=== PATIENT | female | born 1940 | race Caucasian/White ===

== ENCOUNTER 2018-10-16 14:01 | Inpatient (IN) ==
[2018-10-16] MEDS ORDERED: ONDANSETRON 4 MG/2 ML VIAL IV STA (14:52)
[2018-10-16] MEDS ORDERED: SODIUM CHLORIDE 0.9% 1,000 ML IV STA (14:52)
[2018-10-16] MEDS ORDERED: LORazepam 2 MG/1 ML VIAL IV STA (14:53)
[2018-10-16 15:47] LABS: Basophils % 0.2 % (0.0-0.8); Eosinophils % 0.5 % (0.00-10.9); Hematocrit 26.2 VOL% (35.7-47.0); Hemoglobin 8.6 GM/DL (12.0-16.0); Immature Granulocytes % 0.5 %; Immature Granulocytes Absolute 0.04 #; Lymphocytes # 0.9 10*3/uL (1.4-4.0); Lymphocytes % 11.1 % (21.3-54.2); Mean Corpuscular HGB Conc 32.8 GM/DL (32-36); Mean Corpuscular Volume 89.7 FL (87-102); Mean Platelet Volume 9.7 FL (9.6-12.0); Neutrophils % 77.7 % (38.7-73.9); Platelet Count 192 T/CUMM (130-400); Red Blood Count 2.92 MC/CUMM (3.8-5.5); Red Cell Distribution Width 15.5 % (9.3-17.3); White Blood Count 8.1 T/CUMM (4-12)
[2018-10-16 16:17] LABS: Albumin 3.5 G/DL (3.4-5.0); Bilirubin,Total 0.8 MG/DL (0.2-1.0); Calcium 8.5 MG/DL (8.5-10.1); Osmolality,Calculated 279.7 MOS/KG (273-304); Total Protein 7.2 G/DL (6.4-8.3)
[2018-10-16] MEDS ORDERED: ONDANSETRON 4 MG/2 ML VIAL IV PRN (17:30)
[2018-10-16 19:28] LABS: Apearance,Urine Slightly Hazy (Clear); Bilirubin,Urine Negative (Negative); Blood, Urine Negative (Negative); Glucose,Urine (UA) Negative (Negative); Hyaline Casts,Urine 26 /LPF (0-3); Ketones,Urine Negative (Negative); Mucus,Urine Occasional /LPF (Occasional); Nitrite,Urine Negative (Negative); Protein,Urine 30 MG/DL; RBC,Urine 1 /HPF (0-4); Squamous Epithelial Cell,Urine Occasional /HPF (0-10); Urine Color Amber (Yellow); Urine Specific Gravity 1.016 (1.001-1.035); WBC,Urine 4 /HPF (0-6)
[2018-10-16] MEDS: DEXT 5% NACL 0.45% KCL 20 MEQ 20 MEQ/1,000 ML BAG IV SCH (20:27)
[2018-10-17] MEDS: MORPHINE 4 MG/1 ML VIAL IV PRN ×3 (02:53→12:20)
[2018-10-17 05:35] LABS: Basophils # 0.1 10*3/uL (0.0-0.2); Basophils % 0.6 % (0.0-0.8); Eosinophils # 0.1 10*3/uL (0.0-0.87); Eosinophils % 1.1 % (0.00-10.9); Hematocrit 25.3 VOL% (35.7-47.0); Hemoglobin 8.6 GM/DL (12.0-16.0); Immature Granulocytes % 0.5 %; Immature Granulocytes Absolute 0.04 #; Lymphocytes % 12.3 % (21.3-54.2); Mean Corpuscular Volume 88.8 FL (87-102); Mean Platelet Volume 10.2 FL (9.6-12.0); Monocytes % 10.5 % (1.7-12.7); Platelet Count 170 T/CUMM (130-400); Red Blood Count 2.85 MC/CUMM (3.8-5.5); Red Cell Distribution Width 15.5 % (9.3-17.3); White Blood Count 7.9 T/CUMM (4-12)
[2018-10-17] MEDS: DEXT 5% NACL 0.45% KCL 20 MEQ 20 MEQ/1,000 ML BAG IV SCH ×4 (05:47→23:18)
[2018-10-17 06:04] LABS: Bilirubin,Total 0.8 MG/DL (0.2-1.0); Osmolality,Calculated 283.4 MOS/KG (273-304); Risk Ratio 2.72; Thyroid Stimulating Hormone 5.67 uIU/ml (0.358-3.74); Total Protein 6.5 G/DL (6.4-8.3); VLDL CHOLESTEROL 23.4 MG/DL
[2018-10-17] MEDS: PANTOPRAZOLE 40 MG VIAL IV SCH (10:05)
[2018-10-17] MEDS: ACETAMINOPHEN 325 MG TABLET PO PRN (10:13)
[2018-10-17] MEDS: POLYETHYLENE GLYCOL POWDER 17 GM PACK PO SCH (12:26)
[2018-10-18] MEDS: DEXT 5% NACL 0.45% KCL 20 MEQ 20 MEQ/1,000 ML BAG IV SCH ×2 (03:33→09:53)
[2018-10-18 05:20] LABS: Basophils % 0.4 % (0.0-0.8); Eosinophils # 0.1 10*3/uL (0.0-0.87); Eosinophils % 1.9 % (0.00-10.9); Hematocrit 22.4 VOL% (35.7-47.0); Hemoglobin 7.5 GM/DL (12.0-16.0); Immature Granulocytes Absolute 0.07 #; Lymphocytes # 1.4 10*3/uL (1.4-4.0); Lymphocytes % 20.6 % (21.3-54.2); Mean Corpuscular HGB Conc 33.5 GM/DL (32-36); Mean Corpuscular Volume 92.2 FL (87-102); Mean Platelet Volume 9.9 FL (9.6-12.0); Monocytes % 10.9 % (1.7-12.7); Neutrophils % 65.2 % (38.7-73.9); Platelet Count 147 T/CUMM (130-400); Red Blood Count 2.43 MC/CUMM (3.8-5.5); Red Cell Distribution Width 15.9 % (9.3-17.3); White Blood Count 6.8 T/CUMM (4-12)
[2018-10-18 05:42] LABS: Albumin 2.5 G/DL (3.4-5.0); Bilirubin,Total 0.7 MG/DL (0.2-1.0); Calcium 7.3 MG/DL (8.5-10.1); Osmolality,Calculated 284.3 MOS/KG (273-304); Total Protein 5.9 G/DL (6.4-8.3)
[2018-10-18] MEDS: ACETAMINOPHEN 325 MG TABLET PO PRN (09:54)
[2018-10-18] MEDS: PANTOPRAZOLE 40 MG VIAL IV SCH (09:59)
[2018-10-18] MEDS: POLYETHYLENE GLYCOL POWDER 17 GM PACK PO SCH (10:05)
[2018-10-18] MEDS: MORPHINE 4 MG/1 ML VIAL IV PRN (14:24)
[2018-10-19] MEDS: DEXT 5% NACL 0.45% KCL 20 MEQ 20 MEQ/1,000 ML BAG IV SCH ×3 (02:20→13:45)
[2018-10-19 06:13] LABS: Basophils % 0.7 % (0.0-0.8); Eosinophils # 0.2 10*3/uL (0.0-0.87); Hematocrit 23.1 VOL% (35.7-47.0); Hemoglobin 7.2 GM/DL (12.0-16.0); Immature Granulocytes % 0.5 %; Immature Granulocytes Absolute 0.03 #; Lymphocytes # 1.2 10*3/uL (1.4-4.0); Lymphocytes % 20.6 % (21.3-54.2); Mean Corpuscular HGB Conc 31.2 GM/DL (32-36); Mean Corpuscular Volume 93.5 FL (87-102); Mean Platelet Volume 10.4 FL (9.6-12.0); Neutrophils % 65.2 % (38.7-73.9); Platelet Count 147 T/CUMM (130-400); Red Blood Count 2.47 MC/CUMM (3.8-5.5); Red Cell Distribution Width 15.5 % (9.3-17.3); White Blood Count 5.7 T/CUMM (4-12)
[2018-10-19 06:50] LABS: Albumin 2.3 G/DL (3.4-5.0); Bilirubin,Total 0.4 MG/DL (0.2-1.0); Calcium 7.6 MG/DL (8.5-10.1); Osmolality,Calculated 278.8 MOS/KG (273-304); Total Protein 5.8 G/DL (6.4-8.3)
[2018-10-19] MEDS: PANTOPRAZOLE 40 MG VIAL IV SCH (08:46)
[2018-10-19] MEDS: POLYETHYLENE GLYCOL POWDER 17 GM PACK PO SCH (08:46)
[2018-10-19] MEDS ORDERED: DICYCLOMINE 20 MG TABLET PO PRN (11:31)
[2018-10-19] MEDS ORDERED: PROMETHAZINE 25 MG TABLET PO PRN (11:31)
[2018-10-19] MEDS: DILTIAZEM CD 240 MG CAPSULE PO SCH (12:14)
[2018-10-19] MEDS: APIXABAN 5 MG TABLET PO SCH ×2 (12:14→21:23)
[2018-10-19] MEDS ORDERED: SODIUM CHLORIDE 0.9% 1,000 ML IV PRN (18:16)
[2018-10-19] MEDS ORDERED: METOPROLOL SUCCINATE XL 25 MG TABLET PO SCH (21:00)
[2018-10-20 05:48] LABS: Basophils # 0.1 10*3/uL (0.0-0.2); Basophils % 0.8 % (0.0-0.8); Eosinophils # 0.2 10*3/uL (0.0-0.87); Eosinophils % 2.9 % (0.00-10.9); Hematocrit 30.3 VOL% (35.7-47.0); Hemoglobin 10.2 GM/DL (12.0-16.0); Immature Granulocytes % 0.6 %; Immature Granulocytes Absolute 0.04 #; Lymphocytes # 1.4 10*3/uL (1.4-4.0); Lymphocytes % 20.5 % (21.3-54.2); Mean Corpuscular HGB Conc 33.7 GM/DL (32-36); Mean Corpuscular Volume 89.4 FL (87-102); Mean Platelet Volume 10.3 FL (9.6-12.0); Monocytes % 11.6 % (1.7-12.7); Neutrophils % 63.6 % (38.7-73.9); Platelet Count 156 T/CUMM (130-400); Red Blood Count 3.39 MC/CUMM (3.8-5.5); Red Cell Distribution Width 14.6 % (9.3-17.3); White Blood Count 6.6 T/CUMM (4-12)
[2018-10-20 06:15] LABS: Calcium 8.5 MG/DL (8.5-10.1); Osmolality,Calculated 279.3 MOS/KG (273-304)
[2018-10-20] MEDS ORDERED: LEVOTHYROXINE 112 MCG TABLET PO SCH (06:30)
[2018-10-20] MEDS ORDERED: ATORVASTATIN 20 MG TABLET PO SCH (09:00)
[2018-10-20] MEDS ORDERED: CETIRIZINE 10 MG TABLET PO SCH (09:00)
[2018-10-20] MEDS ORDERED: DOXEPIN 25 MG CAPSULE PO SCH (09:00)
[2018-10-20] MEDS: APIXABAN 5 MG TABLET PO SCH (09:11)
[2018-10-20] MEDS: DILTIAZEM CD 240 MG CAPSULE PO SCH (09:12)
[2018-10-20] MEDS: PANTOPRAZOLE 40 MG VIAL IV SCH (09:13)
[2018-10-20] MEDS: POLYETHYLENE GLYCOL POWDER 17 GM PACK PO SCH (09:13)
[2018-10-20 11:41] VITALS: BP 132/71
[2018-10-20] MEDS ORDERED: HEPARIN LOCK FLUSH 500 UNIT/5 ML SYRINGE IV ONE (13:10)
== END 2018-10-20 13:57 | disposition home health service (06) | DRG 389 ==
LOC: N.ED 14:01 → SUATTDRO 17:15 → N.EDINP 17:15 → N.4E 17:50
PROVIDERS: ADMIT Internal Medicine; ATTEND Internal Medicine

== ENCOUNTER 2019-03-09 09:56 | Inpatient (IN) ==
[2019-03-09] MEDS ORDERED: ONDANSETRON 4 MG/2 ML VIAL IV STA (10:18)
[2019-03-09] MEDS ORDERED: PANTOPRAZOLE 40 MG VIAL IV STA (10:18)
[2019-03-09] MEDS ORDERED: HYDROmorphone 2 MG/1 ML VIAL IV STA (10:18)
[2019-03-09] MEDS ORDERED: SODIUM CHLORIDE 0.9% 1,000 ML IV STA (10:18)
[2019-03-09 11:36] LABS: Apearance,Urine CLOUDY (Clear); Bilirubin,Urine Negative (Negative); Blood, Urine Moderate mg/dL (Negative); Glucose,Urine (UA) Negative (Negative); Ketones,Urine 20 mg/dL (Negative); Mucus,Urine Occasional /LPF (Occasional); Nitrite,Urine Negative (Negative); Protein,Urine 30 MG/DL; RBC,Urine 50 /HPF (0-4); Squamous Epithelial Cell,Urine Occasional /HPF (0-10); Urine Color Yellow (Yellow); Urine Specific Gravity 1.018 (1.001-1.035); Urine Urobilinogen < 2.0 EU/DL (0.2-1.0); WBC,Urine 1 /HPF (0-6)
[2019-03-09 11:40] LABS: Basophils % 0.1 % (0.0-0.8); Eosinophils % 0.1 % (0.00-10.9); Hematocrit 32.3 VOL% (35.7-47.0); Hemoglobin 10.5 GM/DL (12.0-16.0); Immature Granulocytes % 0.7 %; Immature Granulocytes Absolute 0.12 #; Lymphocytes # 0.9 10*3/uL (1.4-4.0); Lymphocytes % 5.7 % (21.3-54.2); Mean Corpuscular HGB Conc 32.5 GM/DL (32-36); Mean Corpuscular Volume 89.2 FL (87-102); Monocytes % 11.1 % (1.7-12.7); Neutrophils % 82.3 % (38.7-73.9); Platelet Count 422 T/CUMM (130-400); Red Blood Count 3.62 MC/CUMM (3.8-5.5); White Blood Count 16.4 T/CUMM (4-12)
[2019-03-09 11:51] LABS: Albumin 2.1 G/DL (3.4-5.0); Bilirubin,Total 0.6 MG/DL (0.2-1.0); Calcium 7.8 MG/DL (8.5-10.1); Osmolality,Calculated 275.4 MOS/KG (273-304); Total Protein 6.3 G/DL (6.4-8.3)
[2019-03-09] MEDS ORDERED: LACTATED RINGERS 1,000 ML IV ONE (14:19)
[2019-03-09] MEDS ORDERED: ACETAMINOPHEN 325 MG TABLET NG PRN (14:48)
[2019-03-09] MEDS ORDERED: MAGNESIUM SULF RIDER 4 GM in PREMIX 1 EACH IV PRN (15:25)
[2019-03-09] MEDS ORDERED: MAGNESIUM SULF RIDER 2 GM in PREMIX 1 EACH IV PRN (15:25)
[2019-03-09] MEDS ORDERED: HYDROmorphone 2 MG/1 ML VIAL IV PRN (15:33)
[2019-03-09] MEDS ORDERED: PROMETHAZINE 25 MG SUPP RECTAL PRN (15:41)
[2019-03-09 16:08] LABS: Thyroid Stimulating Hormone 2.57 uIU/ml (0.358-3.74)
[2019-03-09] MEDS: SODIUM CHLORIDE 0.9% 1,000 ML IV SCH (17:53)
[2019-03-10] MEDS: APIXABAN 5 MG TABLET PO SCH ×3 (00:48→21:13)
[2019-03-10] MEDS: METOPROLOL SUCCINATE XL 25 MG TABLET PO SCH ×2 (00:49→21:13)
[2019-03-10] MEDS: SODIUM CHLORIDE 0.9% 1,000 ML IV SCH ×2 (04:08→18:11)
[2019-03-10 04:48] LABS: Basophils % 0.1 % (0.0-0.8); Eosinophils % 0.2 % (0.00-10.9); Hemoglobin 10.2 GM/DL (12.0-16.0); Immature Granulocytes % 0.6 %; Immature Granulocytes Absolute 0.11 #; Lymphocytes # 1.8 10*3/uL (1.4-4.0); Lymphocytes % 10.7 % (21.3-54.2); Mean Corpuscular HGB Conc 31.9 GM/DL (32-36); Mean Corpuscular Volume 90.1 FL (87-102); Mean Platelet Volume 9.4 FL (9.6-12.0); Monocytes % 9.7 % (1.7-12.7); Neutrophils % 78.7 % (38.7-73.9); Platelet Count 416 T/CUMM (130-400); Red Blood Count 3.55 MC/CUMM (3.8-5.5); Red Cell Distribution Width 14.2 % (9.3-17.3)
[2019-03-10 05:14] LABS: Calcium 8.1 MG/DL (8.5-10.1); Osmolality,Calculated 279.7 MOS/KG (273-304)
[2019-03-10] MEDS: LEVOTHYROXINE 112 MCG TABLET PO SCH (06:22)
[2019-03-10] MEDS: PANTOPRAZOLE 40 MG VIAL IV SCH (09:02)
[2019-03-10] MEDS: DILTIAZEM CD 240 MG CAPSULE PO SCH (09:02)
[2019-03-10] MEDS: ONDANSETRON 4 MG/2 ML VIAL IV PRN ×2 (10:45→21:11)
[2019-03-10 20:23] LABS: Apearance,Urine Slightly Hazy (Clear); Bacteria,Urine Moderate /HPF (Few); Bilirubin,Urine Negative (Negative); Blood, Urine Moderate mg/dL (Negative); Glucose,Urine (UA) Negative (Negative); Hyaline Casts,Urine 3 /LPF (0-3); Ketones,Urine 80 mg/dL (Negative); Mucus,Urine Few /LPF (Occasional); Nitrite,Urine Negative (Negative); Protein,Urine 30 MG/DL; RBC,Urine 45 /HPF (0-4); Squamous Epithelial Cell,Urine Occasional /HPF (0-10); Urine Color Yellow (Yellow); Urine Specific Gravity 1.029 (1.001-1.035); Urine Urobilinogen < 2.0 EU/DL (0.2-1.0); WBC,Urine 9 /HPF (0-6)
[2019-03-11] MEDS: cefTRIAXone 1,000 MG in SYRINGE 1 EACH IV SCH (02:19)
[2019-03-11] MEDS: SODIUM CHLORIDE 0.9% 1,000 ML IV SCH (02:19)
[2019-03-11 05:00] LABS: Basophils % 0.2 % (0.0-0.8); Eosinophils % 0.1 % (0.00-10.9); Hematocrit 28.5 VOL% (35.7-47.0); Immature Granulocytes % 0.9 %; Immature Granulocytes Absolute 0.13 #; Lymphocytes # 1.3 10*3/uL (1.4-4.0); Lymphocytes % 8.4 % (21.3-54.2); Mean Corpuscular HGB Conc 31.6 GM/DL (32-36); Mean Corpuscular Volume 91.6 FL (87-102); Mean Platelet Volume 9.5 FL (9.6-12.0); Monocytes % 10.3 % (1.7-12.7); Neutrophils % 80.1 % (38.7-73.9); Platelet Count 357 T/CUMM (130-400); Red Blood Count 3.11 MC/CUMM (3.8-5.5); Red Cell Distribution Width 14.5 % (9.3-17.3); White Blood Count 14.8 T/CUMM (4-12)
[2019-03-11 05:16] LABS: Calcium 7.6 MG/DL (8.5-10.1); Osmolality,Calculated 285.1 MOS/KG (273-304)
[2019-03-11] MEDS: LEVOTHYROXINE 112 MCG TABLET PO SCH (06:17)
[2019-03-11 06:55] LABS: Hypochromasia Slight; Lymphocytes 8 % (20-55); Platelet Estimate Adequate; Segmented Neutrophils 82 % (50-85); Total Cells Counted 100
[2019-03-11] MEDS: PANTOPRAZOLE 40 MG VIAL IV SCH (08:57)
[2019-03-11] MEDS: LACTATED RINGERS 1,000 ML IV SCH ×2 (08:57→18:24)
[2019-03-11] MEDS: APIXABAN 5 MG TABLET PO SCH ×2 (08:59→21:05)
[2019-03-11] MEDS: DILTIAZEM CD 240 MG CAPSULE PO SCH (08:59)
[2019-03-11] MEDS: METOPROLOL SUCCINATE XL 25 MG TABLET PO SCH (21:05)
[2019-03-12] MEDS: LACTATED RINGERS 1,000 ML IV SCH ×3 (01:00→17:51)
[2019-03-12] MEDS: cefTRIAXone 1,000 MG in SYRINGE 1 EACH IV SCH (02:13)
[2019-03-12 05:33] LABS: Basophils % 0.2 % (0.0-0.8); Eosinophils # 0.1 10*3/uL (0.0-0.87); Hematocrit 26.8 VOL% (35.7-47.0); Hemoglobin 8.7 GM/DL (12.0-16.0); Immature Granulocytes % 1.4 %; Immature Granulocytes Absolute 0.13 #; Lymphocytes # 1.6 10*3/uL (1.4-4.0); Lymphocytes % 16.9 % (21.3-54.2); Mean Corpuscular HGB Conc 32.5 GM/DL (32-36); Mean Corpuscular Volume 90.2 FL (87-102); Mean Platelet Volume 9.2 FL (9.6-12.0); Neutrophils % 69.5 % (38.7-73.9); Platelet Count 348 T/CUMM (130-400); Red Blood Count 2.97 MC/CUMM (3.8-5.5); Red Cell Distribution Width 14.3 % (9.3-17.3); White Blood Count 9.3 T/CUMM (4-12)
[2019-03-12] MEDS: LEVOTHYROXINE 112 MCG TABLET PO SCH (05:54)
[2019-03-12 06:00] LABS: Calcium 7.7 MG/DL (8.5-10.1); Osmolality,Calculated 273.8 MOS/KG (273-304)
[2019-03-12] MEDS: DILTIAZEM CD 240 MG CAPSULE PO SCH (10:08)
[2019-03-12] MEDS: POTASSIUM CHLORIDE 20 MEQ TABLET PO PRN (10:08)
[2019-03-12] MEDS: APIXABAN 5 MG TABLET PO SCH ×2 (10:09→20:35)
[2019-03-12] MEDS: PANTOPRAZOLE 40 MG VIAL IV SCH (10:12)
[2019-03-12] MEDS ORDERED: SODIUM CHLORIDE 0.9% 1,000 ML IV PRN (10:53)
[2019-03-13] MEDS: LACTATED RINGERS 1,000 ML IV SCH (00:52)
[2019-03-13] MEDS: METOPROLOL SUCCINATE XL 25 MG TABLET PO SCH ×2 (02:45→20:36)
[2019-03-13] MEDS: cefTRIAXone 1,000 MG in SYRINGE 1 EACH IV SCH (03:30)
[2019-03-13] MEDS: LEVOTHYROXINE 112 MCG TABLET PO SCH (05:39)
[2019-03-13] MEDS: PANTOPRAZOLE 40 MG VIAL IV SCH (08:45)
[2019-03-13] MEDS: DILTIAZEM CD 240 MG CAPSULE PO SCH (08:46)
[2019-03-13] MEDS: APIXABAN 5 MG TABLET PO SCH (08:46)
[2019-03-13] MEDS: POTASSIUM CHLORIDE 20 MEQ TABLET PO PRN ×3 (08:47→15:31)
[2019-03-13 09:11] LABS: Immature Granulocytes % 4.3 %; Immature Granulocytes Absolute 0.39 #
[2019-03-13 09:13] LABS: Basophils % 0.4 % (0.0-0.8); Eosinophils # 0.2 10*3/uL (0.0-0.87); Eosinophils % 1.9 % (0.00-10.9); Hematocrit 34.2 VOL% (35.7-47.0); Lymphocytes # 1.3 10*3/uL (1.4-4.0); Lymphocytes % 14.1 % (21.3-54.2); Mean Corpuscular HGB Conc 32.5 GM/DL (32-36); Mean Corpuscular Volume 86.4 FL (87-102); Monocytes % 11.6 % (1.7-12.7); Neutrophils % 67.7 % (38.7-73.9); Platelet Count 303 T/CUMM (130-400); White Blood Count 9.1 T/CUMM (4-12)
[2019-03-13 09:14] LABS: Red Blood Count 3.96 MC/CUMM (3.8-5.5)
[2019-03-13 09:15] LABS: Hemoglobin 11.1 GM/DL (12.0-16.0)
[2019-03-13 09:31] LABS: Calcium 7.1 MG/DL (8.5-10.1)
[2019-03-13] MEDS ORDERED: cefOXitin 2,000 MG in SYRINGE 1 EACH IV ONE (11:00)
[2019-03-13] MEDS: DEXT 5% NACL 0.45% KCL 20 MEQ 20 MEQ/1,000 ML BAG IV SCH (12:55)
[2019-03-14] MEDS: cefTRIAXone 1,000 MG in SYRINGE 1 EACH IV SCH (05:57)
[2019-03-14] MEDS: LEVOTHYROXINE 112 MCG TABLET PO SCH (05:57)
[2019-03-14] MEDS: DEXT 5% NACL 0.45% KCL 20 MEQ 20 MEQ/1,000 ML BAG IV SCH ×3 (07:22→19:50)
[2019-03-14 07:23] LABS: Basophils % 0.6 % (0.0-0.8); Eosinophils # 0.2 10*3/uL (0.0-0.87); Eosinophils % 2.7 % (0.00-10.9); Hematocrit 35.4 VOL% (35.7-47.0); Hemoglobin 11.2 GM/DL (12.0-16.0); Immature Granulocytes Absolute 0.25 #; Lymphocytes # 1.3 10*3/uL (1.4-4.0); Mean Corpuscular HGB Conc 31.6 GM/DL (32-36); Mean Corpuscular Volume 88.5 FL (87-102); Mean Platelet Volume 9.4 FL (9.6-12.0); Monocytes % 15.5 % (1.7-12.7); Neutrophils % 56.2 % (38.7-73.9); Platelet Count 318 T/CUMM (130-400); White Blood Count 6.2 T/CUMM (4-12)
[2019-03-14 07:50] LABS: Albumin 1.4 G/DL (3.4-5.0); Bilirubin,Total 0.5 MG/DL (0.2-1.0); Calcium 7.2 MG/DL (8.5-10.1); Osmolality,Calculated 284.8 MOS/KG (273-304); Total Protein 4.9 G/DL (6.4-8.3)
[2019-03-14] MEDS: PANTOPRAZOLE 40 MG VIAL IV SCH (08:19)
[2019-03-14] MEDS: DILTIAZEM CD 240 MG CAPSULE PO SCH (08:20)
[2019-03-14 08:46] LABS: Calcium 7.5 MG/DL (8.5-10.1); Osmolality,Calculated 278.4 MOS/KG (273-304)
[2019-03-14] MEDS: ENOXAPARIN 40 MG/0.4 ML SYRINGE SUBCUT SCH (09:41)
[2019-03-14] MEDS: METOPROLOL SUCCINATE XL 25 MG TABLET PO SCH (20:48)
[2019-03-15] MEDS: cefTRIAXone 1,000 MG in SYRINGE 1 EACH IV SCH (02:30)
[2019-03-15 05:44] LABS: Basophils # 0.1 10*3/uL (0.0-0.2); Basophils % 0.7 % (0.0-0.8); Eosinophils # 0.2 10*3/uL (0.0-0.87); Eosinophils % 3.4 % (0.00-10.9); Hematocrit 33.7 VOL% (35.7-47.0); Hemoglobin 10.9 GM/DL (12.0-16.0); Immature Granulocytes % 3.7 %; Immature Granulocytes Absolute 0.25 #; Lymphocytes # 1.6 10*3/uL (1.4-4.0); Lymphocytes % 24.6 % (21.3-54.2); Mean Corpuscular HGB Conc 32.3 GM/DL (32-36); Mean Corpuscular Volume 86.9 FL (87-102); Mean Platelet Volume 9.5 FL (9.6-12.0); Monocytes % 14.7 % (1.7-12.7); Neutrophils % 52.9 % (38.7-73.9); Platelet Count 299 T/CUMM (130-400); Red Blood Count 3.88 MC/CUMM (3.8-5.5); Red Cell Distribution Width 15.9 % (9.3-17.3); White Blood Count 6.7 T/CUMM (4-12)
[2019-03-15] MEDS: LEVOTHYROXINE 112 MCG TABLET PO SCH (05:45)
[2019-03-15 06:07] LABS: Calcium 7.2 MG/DL (8.5-10.1); Osmolality,Calculated 280.1 MOS/KG (273-304)
[2019-03-15] MEDS: PANTOPRAZOLE 40 MG VIAL IV SCH (08:54)
[2019-03-15] MEDS: DILTIAZEM CD 240 MG CAPSULE PO SCH (08:54)
[2019-03-15] MEDS: ENOXAPARIN 40 MG/0.4 ML SYRINGE SUBCUT SCH (08:55)
[2019-03-15] MEDS ORDERED: FUROSEMIDE 20 MG/2 ML VIAL IV ONE (09:09)
[2019-03-15] MEDS: METOPROLOL SUCCINATE XL 25 MG TABLET PO SCH (20:45)
[2019-03-16] MEDS: cefTRIAXone 1,000 MG in SYRINGE 1 EACH IV SCH (02:50)
[2019-03-16 04:53] LABS: Basophils # 0.1 10*3/uL (0.0-0.2); Basophils % 0.9 % (0.0-0.8); Eosinophils # 0.2 10*3/uL (0.0-0.87); Eosinophils % 3.3 % (0.00-10.9); Hematocrit 39.6 VOL% (35.7-47.0); Hemoglobin 12.5 GM/DL (12.0-16.0); Immature Granulocytes % 3.6 %; Immature Granulocytes Absolute 0.23 #; Lymphocytes # 1.7 10*3/uL (1.4-4.0); Lymphocytes % 26.6 % (21.3-54.2); Mean Corpuscular HGB Conc 31.6 GM/DL (32-36); Mean Corpuscular Volume 87.2 FL (87-102); Mean Platelet Volume 9.4 FL (9.6-12.0); Monocytes % 14.1 % (1.7-12.7); Neutrophils % 51.5 % (38.7-73.9); Platelet Count 306 T/CUMM (130-400); Red Blood Count 4.54 MC/CUMM (3.8-5.5); Red Cell Distribution Width 15.9 % (9.3-17.3); White Blood Count 6.4 T/CUMM (4-12)
[2019-03-16 05:25] LABS: Calcium 7.6 MG/DL (8.5-10.1); Osmolality,Calculated 274.4 MOS/KG (273-304)
[2019-03-16] MEDS: LEVOTHYROXINE 112 MCG TABLET PO SCH (06:30)
[2019-03-16] MEDS ORDERED: cefOXitin 2,000 MG in SYRINGE 1 EACH IV ONE ×2 (08:00→09:00)
[2019-03-16] MEDS: PANTOPRAZOLE 40 MG VIAL IV SCH (08:35)
[2019-03-16] MEDS: DILTIAZEM CD 240 MG CAPSULE PO SCH (08:36)
[2019-03-16] MEDS ORDERED: BUPIVACAINE MPF 0.25% 30 ML VIAL ONE (10:21)
[2019-03-16] MEDS ORDERED: TISSUE ADHESIVE 1 EACH APPLICATOR TOP ONE (10:21)
[2019-03-16] MEDS ORDERED: LIDOCAINE 1%/EPI INJ 20 ML VIAL ONE (10:21)
[2019-03-16] MEDS ORDERED: ONDANSETRON 4 MG/2 ML VIAL ONE (10:48)
[2019-03-16] MEDS ORDERED: propofoL 200 MG/20 ML VIAL IV ONE (10:48)
[2019-03-16] MEDS ORDERED: fentaNYL 100 MCG/2 ML VIAL ONE (10:48)
[2019-03-16] MEDS ORDERED: SEVOFLURANE 1 UNIT/15 MINUTE INH ONE (10:48)
[2019-03-16] MEDS ORDERED: GLYCOPYRROLATE 0.4 MG/2 ML VIAL ONE (10:48)
[2019-03-16] MEDS ORDERED: LIDOCAINE 2% 5 ML VIAL ONE (10:48)
[2019-03-16] MEDS ORDERED: NEOSTIGMINE 10 MG/10 ML VIAL ONE (10:49)
[2019-03-16] MEDS ORDERED: PHENYLEPHRINE 1 MG/10 ML SYRINGE IV ONE (10:49)
[2019-03-16] MEDS ORDERED: ROCURONIUM 100 MG/10 ML VIAL IV ONE (10:49)
[2019-03-16] MEDS: METOPROLOL SUCCINATE XL 25 MG TABLET PO SCH (20:48)
[2019-03-17] MEDS: cefTRIAXone 1,000 MG in SYRINGE 1 EACH IV SCH (04:10)
[2019-03-17 05:49] LABS: Basophils % 0.7 % (0.0-0.8); Eosinophils # 0.2 10*3/uL (0.0-0.87); Eosinophils % 3.5 % (0.00-10.9); Hematocrit 36.1 VOL% (35.7-47.0); Hemoglobin 11.3 GM/DL (12.0-16.0); Immature Granulocytes % 1.8 %; Lymphocytes # 1.5 10*3/uL (1.4-4.0); Lymphocytes % 26.8 % (21.3-54.2); Mean Corpuscular HGB Conc 31.3 GM/DL (32-36); Mean Corpuscular Volume 88.7 FL (87-102); Mean Platelet Volume 9.3 FL (9.6-12.0); Neutrophils % 53.2 % (38.7-73.9); Platelet Count 260 T/CUMM (130-400); Red Blood Count 4.07 MC/CUMM (3.8-5.5); Red Cell Distribution Width 15.7 % (9.3-17.3); White Blood Count 5.7 T/CUMM (4-12)
[2019-03-17] MEDS: LEVOTHYROXINE 112 MCG TABLET PO SCH (06:04)
[2019-03-17 06:08] LABS: Calcium 7.8 MG/DL (8.5-10.1); Osmolality,Calculated 275.4 MOS/KG (273-304)
[2019-03-17] MEDS: DILTIAZEM CD 240 MG CAPSULE PO SCH (09:42)
[2019-03-17] MEDS: PANTOPRAZOLE 40 MG VIAL IV SCH (09:43)
[2019-03-18] MEDS: cefTRIAXone 1,000 MG in SYRINGE 1 EACH IV SCH (02:00)
[2019-03-18] MEDS: METOPROLOL SUCCINATE XL 25 MG TABLET PO SCH ×2 (04:26→20:26)
[2019-03-18 05:32] LABS: Basophils % 0.7 % (0.0-0.8); Eosinophils # 0.2 10*3/uL (0.0-0.87); Eosinophils % 3.3 % (0.00-10.9); Hematocrit 33.9 VOL% (35.7-47.0); Hemoglobin 10.6 GM/DL (12.0-16.0); Immature Granulocytes % 0.9 %; Immature Granulocytes Absolute 0.05 #; Lymphocytes # 1.4 10*3/uL (1.4-4.0); Lymphocytes % 23.8 % (21.3-54.2); Mean Corpuscular HGB Conc 31.3 GM/DL (32-36); Mean Platelet Volume 9.9 FL (9.6-12.0); Monocytes % 15.8 % (1.7-12.7); Neutrophils % 55.5 % (38.7-73.9); Platelet Count 224 T/CUMM (130-400); Red Blood Count 3.81 MC/CUMM (3.8-5.5); Red Cell Distribution Width 15.9 % (9.3-17.3); White Blood Count 5.8 T/CUMM (4-12)
[2019-03-18 05:51] LABS: Calcium 7.6 MG/DL (8.5-10.1)
[2019-03-18 05:54] LABS: Albumin 1.6 G/DL (3.4-5.0); Bilirubin,Total 0.5 MG/DL (0.2-1.0); Calcium 7.4 MG/DL (8.5-10.1); Osmolality,Calculated 269.8 MOS/KG (273-304); Total Protein 4.7 G/DL (6.4-8.3)
[2019-03-18 06:09] LABS: Eosinophils 5 % (0-10); Hypochromasia 1+; Lymphocytes 19 % (20-55); Ovalocytes Slight; Platelet Estimate Adequate; Segmented Neutrophils 57 % (50-85); Total Cells Counted 100
[2019-03-18] MEDS: LEVOTHYROXINE 112 MCG TABLET PO SCH (07:07)
[2019-03-18] MEDS: DILTIAZEM CD 240 MG CAPSULE PO SCH (08:36)
[2019-03-18] MEDS: PANTOPRAZOLE 40 MG VIAL IV SCH (08:36)
[2019-03-18] MEDS: DOCUSATE SODIUM 100 MG CAPSULE PO SCH (09:37)
[2019-03-18] MEDS: APIXABAN 5 MG TABLET PO SCH ×2 (09:38→20:26)
[2019-03-18] MEDS: POLYETHYLENE GLYCOL POWDER 17 GM PACK PO SCH ×2 (09:38→20:25)
[2019-03-19 06:19] LABS: Albumin 1.7 G/DL (3.4-5.0); Bilirubin,Total 0.4 MG/DL (0.2-1.0); Calcium 7.8 MG/DL (8.5-10.1); Osmolality,Calculated 271.8 MOS/KG (273-304); Total Protein 5.5 G/DL (6.4-8.3)
[2019-03-19] MEDS: LEVOTHYROXINE 112 MCG TABLET PO SCH (06:24)
[2019-03-19] MEDS: PANTOPRAZOLE 40 MG VIAL IV SCH (08:11)
[2019-03-19] MEDS: DILTIAZEM CD 240 MG CAPSULE PO SCH (08:11)
[2019-03-19] MEDS: POLYETHYLENE GLYCOL POWDER 17 GM PACK PO SCH (08:12)
[2019-03-19] MEDS: DOCUSATE SODIUM 100 MG CAPSULE PO SCH (08:12)
[2019-03-19] MEDS: APIXABAN 5 MG TABLET PO SCH (08:12)
[2019-03-19] MEDS ORDERED: DEXAMETHASONE 10 MG/1 ML VIAL IV ONE (11:16)
[2019-03-19] MEDS ORDERED: GRANISETRON 1 MG/1 ML VIAL IV ONE (11:16)
[2019-03-19 11:51] VITALS: BP 121/50
[2019-03-19] MEDS ORDERED: GEMCITABINE IV ONE (12:00)
[2019-03-19] MEDS ORDERED: SODIUM CHLORIDE 0.9% IV ONE (12:00)
[2019-03-19] MEDS ORDERED: HEPARIN LOCK FLUSH 500 UNIT/5 ML SYRINGE IV ONE (15:22)
== END 2019-03-19 16:40 | disposition home or self-care (01) | DRG 988 ==
LOC: EDBD → EDUNIT# → N.ED 09:56 → SUATTDRO 14:48 → N.EDINP 14:48 → N.4E 16:23
PROVIDERS: ADMIT Internal Medicine; ATTEND Internal Medicine

== ENCOUNTER 2019-04-28 10:50 | Inpatient (IN) ==
[2019-04-28 13:08] LABS: Basophils % 0.2 % (0.0-0.8); Hemoglobin 7.1 GM/DL (12.0-16.0); Immature Granulocytes % 1.6 %; Immature Granulocytes Absolute 0.07 #; Lymphocytes # 0.8 10*3/uL (1.4-4.0); Lymphocytes % 18.3 % (21.3-54.2); Mean Corpuscular HGB Conc 32.3 GM/DL (32-36); Mean Corpuscular Volume 93.2 FL (87-102); Mean Platelet Volume 10.1 FL (9.6-12.0); Neutrophils % 68.9 % (38.7-73.9); Platelet Count 177 T/CUMM (130-400); Red Blood Count 2.36 MC/CUMM (3.8-5.5); Red Cell Distribution Width 22.9 % (9.3-17.3); White Blood Count 4.4 T/CUMM (4-12)
[2019-04-28] MEDS ORDERED: ACETAMINOPHEN 325 MG TABLET PO PRN (13:24)
[2019-04-28] MEDS ORDERED: ONDANSETRON 4 MG/2 ML VIAL IV PRN (13:24)
[2019-04-28] MEDS ORDERED: LACTULOSE 20 GM/30 ML UDCUP PO PRN (13:24)
[2019-04-28 13:41] LABS: Albumin 1.7 G/DL (3.4-5.0); Bilirubin,Total 0.8 MG/DL (0.2-1.0); Calcium 7.5 MG/DL (8.5-10.1); Osmolality,Calculated 273.1 MOS/KG (273-304); Total Protein 5.1 G/DL (6.4-8.3)
[2019-04-28 13:51] LABS: Lymphocytes 13 % (20-55); Nucleated Red Blood Cells 2 (0-5); Polychromasia Slight; Segmented Neutrophils 79 % (50-85); Total Cells Counted 100
[2019-04-28 13:52] LABS: Platelet Estimate Adequate
[2019-04-28 13:56] LABS: Thyroid Stimulating Hormone 9.11 uIU/ml (0.358-3.74); VLDL CHOLESTEROL 18.2 MG/DL
[2019-04-28] MEDS ORDERED: MAGNESIUM SULF RIDER 4 GM in PREMIX 1 EACH IV PRN (14:04)
[2019-04-28] MEDS ORDERED: MAGNESIUM SULF RIDER 2 GM in PREMIX 1 EACH IV PRN (14:04)
[2019-04-28 14:58] LABS: Free T4 (Free Thyroxine) 1.52 NG/DL (0.76-1.46)
[2019-04-28] MEDS: MEROPENEM 1,000 MG in SODIUM CHLORIDE 0.9% 100 ML IV SCH ×2 (15:32→22:40)
[2019-04-28] MEDS: DEXT 5% NACL 0.45% KCL 20 MEQ 20 MEQ/1,000 ML BAG IV SCH (15:32)
[2019-04-28] MEDS ORDERED: FUROSEMIDE 40 MG/4 ML VIAL IV ONE (15:54)
[2019-04-28] MEDS: ALBUTEROL 2.5 MG/3 ML NEB RESP TX SCH (19:28)
[2019-04-29] MEDS: ALBUTEROL 2.5 MG/3 ML NEB RESP TX SCH ×4 (00:24→19:11)
[2019-04-29 05:40] LABS: Basophils % 0.2 % (0.0-0.8); Hematocrit 26.7 VOL% (35.7-47.0); Hemoglobin 8.9 GM/DL (12.0-16.0); Immature Granulocytes % 2.8 %; Immature Granulocytes Absolute 0.12 #; Lymphocytes % 22.3 % (21.3-54.2); Mean Corpuscular HGB Conc 33.3 GM/DL (32-36); Mean Corpuscular Volume 90.8 FL (87-102); Mean Platelet Volume 9.5 FL (9.6-12.0); Monocytes % 10.6 % (1.7-12.7); NRBC # 0.09 10*3/uL; Neutrophils % 64.1 % (38.7-73.9); Platelet Count 120 T/CUMM (130-400); Red Blood Count 2.94 MC/CUMM (3.8-5.5); Red Cell Distribution Width 19.9 % (9.3-17.3); White Blood Count 4.4 T/CUMM (4-12)
[2019-04-29] MEDS: MEROPENEM 1,000 MG in SODIUM CHLORIDE 0.9% 100 ML IV SCH ×3 (05:41→22:36)
[2019-04-29] MEDS: LEVOTHYROXINE 125 MCG TABLET PO SCH (05:41)
[2019-04-29 05:56] LABS: Albumin 1.4 G/DL (3.4-5.0); Bilirubin,Total 1.2 MG/DL (0.2-1.0); Total Protein 4.4 G/DL (6.4-8.3)
[2019-04-29 06:05] LABS: Folate 5.4 NG/ML (5.4-24.0); Vitamin B12 737 PG/ML (211-911)
[2019-04-29 06:12] LABS: Lymphocytes 25 % (20-55); Segmented Neutrophils 71 % (50-85); Total Cells Counted 100
[2019-04-29 06:13] LABS: Hypochromasia 1+
[2019-04-29 07:11] LABS: Sedimentation Rate-Westergren 65 MM/HR (0-30)
[2019-04-29] MEDS: POTASSIUM CHLORIDE RIDER 10 MEQ in PREMIX 1 EACH IV PRN ×4 (07:12→11:49)
[2019-04-29] MEDS ORDERED: PROMETHAZINE 25 MG SUPP RECTAL PRN (08:17)
[2019-04-29] MEDS ORDERED: CETIRIZINE 10 MG TABLET PO PRN (08:17)
[2019-04-29] MEDS: OLMESARTAN 5 MG TABLET PO SCH (08:57)
[2019-04-29] MEDS ORDERED: LEVOTHYROXINE 112 MCG TABLET PO SCH (09:00)
[2019-04-29] MEDS: DILTIAZEM CD 240 MG CAPSULE PO SCH (09:00)
[2019-04-29] MEDS: APIXABAN 5 MG TABLET PO SCH ×2 (09:00→22:37)
[2019-04-29] MEDS: FUROSEMIDE 40 MG TABLET PO SCH (09:00)
[2019-04-29] MEDS: PANTOPRAZOLE 40 MG TABLET PO SCH ×2 (09:00→22:38)
[2019-04-29] MEDS ORDERED: SODIUM CHLORIDE 0.9% 1,000 ML IV PRN (09:16)
[2019-04-29] MEDS: POTASSIUM CHLORIDE 10 MEQ TABLET PO SCH ×2 (09:36→22:37)
[2019-04-29 09:55] LABS: Hemoglobin A1 (Alkaline) 97.2 % (96.5-98.5); Hemoglobin A2 (Alkaline) 2.8 % (1.5-3.5)
[2019-04-29] MEDS: DEXT 5% NACL 0.45% KCL 20 MEQ 20 MEQ/1,000 ML BAG IV SCH (17:36)
[2019-04-29] MEDS: METOPROLOL SUCCINATE XL 25 MG TABLET PO SCH (22:38)
[2019-04-30] MEDS: ALBUTEROL 2.5 MG/3 ML NEB RESP TX SCH ×4 (00:48→19:33)
[2019-04-30] MEDS: MEROPENEM 1,000 MG in SODIUM CHLORIDE 0.9% 100 ML IV SCH (06:29)
[2019-04-30] MEDS: LEVOTHYROXINE 125 MCG TABLET PO SCH (06:30)
[2019-04-30 07:47] LABS: Apearance,Urine CLEAR (Clear); Bacteria,Urine Occasional /HPF (Few); Bilirubin,Urine Negative (Negative); Blood, Urine Moderate mg/dL (Negative); Glucose,Urine (UA) 50 mg/dL (Negative); Ketones,Urine 5 mg/dL (Negative); Mucus,Urine Occasional /LPF (Occasional); Nitrite,Urine Negative (Negative); Protein,Urine Negative; RBC,Urine 3 /HPF (0-4); Squamous Epithelial Cell,Urine Occasional /HPF (0-10); Urine Color Yellow (Yellow); Urine Specific Gravity 1.018 (1.001-1.035); WBC,Urine 25 /HPF (0-6)
[2019-04-30 08:42] LABS: Basophils % 0.2 % (0.0-0.8); Eosinophils % 0.2 % (0.00-10.9); Hematocrit 33.2 VOL% (35.7-47.0); Hemoglobin 10.9 GM/DL (12.0-16.0); Immature Granulocytes % 4.8 %; Immature Granulocytes Absolute 0.24 #; Lymphocytes # 1.2 10*3/uL (1.4-4.0); Lymphocytes % 24.6 % (21.3-54.2); Mean Corpuscular HGB Conc 32.8 GM/DL (32-36); Mean Corpuscular Volume 92.5 FL (87-102); Monocytes % 13.6 % (1.7-12.7); NRBC # 0.14 10*3/uL; Neutrophils % 56.6 % (38.7-73.9); Platelet Count 127 T/CUMM (130-400); Red Blood Count 3.59 MC/CUMM (3.8-5.5); Red Cell Distribution Width 21.2 % (9.3-17.3)
[2019-04-30] MEDS: LEVOFLOXACIN 500 MG TABLET PO SCH (08:48)
[2019-04-30] MEDS: OLMESARTAN 5 MG TABLET PO SCH ×2 (08:48→08:57)
[2019-04-30] MEDS: POTASSIUM CHLORIDE 10 MEQ TABLET PO SCH (08:48)
[2019-04-30] MEDS: DILTIAZEM CD 240 MG CAPSULE PO SCH (08:48)
[2019-04-30] MEDS: DEXT 5% NACL 0.45% KCL 20 MEQ 20 MEQ/1,000 ML BAG IV SCH ×2 (08:49→08:53)
[2019-04-30] MEDS: APIXABAN 5 MG TABLET PO SCH (08:49)
[2019-04-30] MEDS: FUROSEMIDE 40 MG TABLET PO SCH (08:50)
[2019-04-30] MEDS: PANTOPRAZOLE 40 MG TABLET PO SCH ×2 (08:50→20:53)
[2019-04-30 09:12] LABS: Albumin 1.6 G/DL (3.4-5.0); Bilirubin,Total 0.7 MG/DL (0.2-1.0); Calcium 7.8 MG/DL (8.5-10.1); Osmolality,Calculated 271.1 MOS/KG (273-304); Total Protein 5.2 G/DL (6.4-8.3)
[2019-04-30 11:42] LABS: Hematocrit 31.7 VOL% (35.7-47.0); Hemoglobin 10.3 GM/DL (12.0-16.0)
[2019-04-30] MEDS: METOPROLOL SUCCINATE XL 25 MG TABLET PO SCH (22:09)
[2019-05-01] MEDS: ALBUTEROL 2.5 MG/3 ML NEB RESP TX SCH ×3 (01:17→13:22)
[2019-05-01] MEDS: LEVOTHYROXINE 125 MCG TABLET PO SCH (06:08)
[2019-05-01] MEDS ORDERED: LACTATED RINGERS 1,000 ML IV SCH (08:00)
[2019-05-01 08:20] LABS: Basophils % 0.2 % (0.0-0.8); Eosinophils % 0.3 % (0.00-10.9); Hematocrit 31.1 VOL% (35.7-47.0); Immature Granulocytes Absolute 0.17 #; Lymphocytes % 17.6 % (21.3-54.2); Mean Corpuscular HGB Conc 32.2 GM/DL (32-36); Mean Corpuscular Volume 93.7 FL (87-102); Mean Platelet Volume 10.7 FL (9.6-12.0); Monocytes % 14.6 % (1.7-12.7); NRBC # 0.07 10*3/uL; Neutrophils % 64.3 % (38.7-73.9); Platelet Count 135 T/CUMM (130-400); Red Blood Count 3.32 MC/CUMM (3.8-5.5); Red Cell Distribution Width 20.8 % (9.3-17.3); White Blood Count 5.8 T/CUMM (4-12)
[2019-05-01 08:39] LABS: Albumin 1.4 G/DL (3.4-5.0); Bilirubin,Total 0.6 MG/DL (0.2-1.0); Osmolality,Calculated 267.4 MOS/KG (273-304); Total Protein 4.1 G/DL (6.4-8.3)
[2019-05-01] MEDS ORDERED: propofoL 200 MG/20 ML VIAL IV ONE (09:00)
[2019-05-01] MEDS ORDERED: LIDOCAINE 100 MG/5 ML SYRINGE ONE (09:00)
[2019-05-01] MEDS: DILTIAZEM CD 240 MG CAPSULE PO SCH (12:31)
[2019-05-01] MEDS: FUROSEMIDE 40 MG TABLET PO SCH (12:31)
[2019-05-01] MEDS: LEVOFLOXACIN 500 MG TABLET PO SCH (12:31)
[2019-05-01] MEDS: PANTOPRAZOLE 40 MG TABLET PO SCH (12:31)
[2019-05-01] MEDS: DEXT 5% NACL 0.45% KCL 20 MEQ 20 MEQ/1,000 ML BAG IV SCH (15:31)
[2019-05-01] MEDS ORDERED: HEPARIN LOCK FLUSH 500 UNIT/5 ML SYRINGE IV ONE ×2 (15:57→16:36)
[2019-05-01 16:53] VITALS: BP 109/69
== END 2019-05-01 17:30 | disposition home health service (06) | DRG 812 ==
LOC: N.4E 11:32 → SUATTDRO 11:32 → N.4E 11:50
PROVIDERS: ADMIT Specialist; ATTEND Internal Medicine